=== PATIENT | female | born 1990 ===

== ENCOUNTER 2018-03-17 14:10 | Inpatient (IN) ==
[2018-03-17] MEDS ORDERED: CITRIC ACID/SODIUM CITRATE 30 ML UDCUP PO ONE (14:56)
[2018-03-17] MEDS ORDERED: LACTATED RINGERS 1,000 ML IV SCH ×2 (15:00→20:30)
[2018-03-17 16:04] LABS: Basophils % 0.1 % (0.0-0.8); Eosinophils % 0.2 % (0.00-10.9); Hematocrit 42.3 VOL% (35.7-47.0); Hemoglobin 13.8 GM/DL (12.0-16.0); Immature Granulocytes % 0.3 %; Immature Granulocytes Absolute 0.04 #; Lymphocytes # 2.4 10*3/uL (1.4-4.0); Lymphocytes % 19.6 % (21.3-54.2); Mean Corpuscular HGB Conc 32.6 GM/DL (32-36); Mean Corpuscular Hemoglobin 28 PG (27-34); Mean Corpuscular Volume 85.1 FL (87-102); Mean Platelet Volume 10.9 FL (9.6-12.0); Monocytes # 0.6 10*3/uL (0.11-0.8); Monocytes % 4.4 % (1.7-12.7); Neutrophils # 9.4 10*3/uL (1.4-7.4); Neutrophils % 75.4 % (38.7-73.9); Platelet Count 303 T/CUMM (130-400); Red Blood Count 4.97 MC/CUMM (3.8-5.5); Red Cell Distribution Width 14.5 % (9.3-17.3); White Blood Count 12.4 T/CUMM (4-12)
[2018-03-17 16:13] LABS: INR 0.9; PT Patient Result 9.3 SECS; Partial Thromboplastin Time 29.4 SECS (0-40)
[2018-03-17 16:28] LABS: Albumin 2.2 G/DL (3.4-5.0); Bilirubin,Total 0.4 MG/DL (0.2-1.0); Calcium 8.5 MG/DL (8.5-10.1); Osmolality,Calculated 277.3 MOS/KG (273-304); Potassium 3.9 MMOL/L (3.5-5.1); Total Protein 6.8 G/DL (6.4-8.3)
[2018-03-17] MEDS ORDERED: FAMOTIDINE 20 MG/2 ML VIAL IV ONE (17:00)
[2018-03-17] MEDS ORDERED: AMPICILLIN/SULBACTAM 3,000 MG in SODIUM CHLORIDE 0.9% 100 ML IV ONE (17:00)
[2018-03-17] MEDS ORDERED: OXYTOCIN 10 UNIT/ML VIAL IM ONE ×2 (17:00→17:15)
[2018-03-17] MEDS ORDERED: ceFAZolin 3,000 MG in SYRINGE 1 EACH IV ONE (17:10)
[2018-03-17] MEDS ORDERED: OXYTOCIN/LR 30 UNIT/1,000 ML BAG IV ONE (17:15)
[2018-03-17] MEDS ORDERED: LACTATED RINGERS 1,000 ML IV ONE (17:50)
[2018-03-17] MEDS ORDERED: fentaNYL 100 MCG/2 ML VIAL ONE (18:37)
[2018-03-17] MEDS ORDERED: MORPHINE 10 MG/10 ML VIAL ONE (18:38)
[2018-03-17] MEDS ORDERED: BUPIVACAINE SPINAL 0.75% 2 ML AMP SPINAL ONE (18:38)
[2018-03-17 20:14] LABS: Cord Venous Blood HCO3 24.1 MMOL/L; Cord Venous Blood PCO2 46.4 MMHG; Cord Venous Blood PO2 37.5 MMHG
[2018-03-17] MEDS ORDERED: ONDANSETRON 4 MG/2 ML VIAL IV PRN (20:18)
[2018-03-17] MEDS ORDERED: IBUPROFEN 800 MG TABLET PO PRN (20:18)
[2018-03-17] MEDS ORDERED: ACETAMINOPHEN 325 MG TABLET PO PRN (20:18)
[2018-03-17] MEDS ORDERED: RHO(D) IMMUNE GLOBULIN 300 MCG SYRINGE IM ONE (20:18)
[2018-03-17] MEDS ORDERED: OXYTOCIN/LR 20 UNIT/1,000 ML BAG IV ONE (20:18)
[2018-03-17] MEDS ORDERED: MORPHINE 10 MG/1 ML VIAL IV PRN (20:22)
[2018-03-17] MEDS ORDERED: MIDAZOLAM 2 MG/2 ML VIAL ONE (20:24)
[2018-03-17] MEDS ORDERED: PHENYLEPHRINE 1 MG/10 ML SYRINGE IV ONE (20:26)
[2018-03-17 20:28] LABS: Apearance,Urine Slightly Hazy (Clear); Bacteria,Urine Occasional /HPF (Few); Bilirubin,Urine Negative (Negative); Blood, Urine Negative (Negative); Glucose,Urine (UA) Negative (Negative); Ketones,Urine 80 mg/dL (Negative); Mucus,Urine Moderate /LPF (Occasional); Nitrite,Urine Negative (Negative); Protein,Urine 30 MG/DL; RBC,Urine 1 /HPF (0-4); Squamous Epithelial Cell,Urine Occasional /HPF (0-10); Urine Color Yellow (Yellow); Urine Specific Gravity 1.026 (1.001-1.035); Urine Urobilinogen < 2.0 EU/DL (0.2-1.0); WBC,Urine 1 /HPF (0-6)
[2018-03-17] MEDS ORDERED: KETOROLAC 30 MG/1 ML VIAL IV ONE (23:22)
[2018-03-17] MEDS ORDERED: KETOROLAC 30 MG/1 ML VIAL ONE (23:24)
[2018-03-18] MEDS: ceFAZolin 1,000 MG in SYRINGE 1 EACH IV SCH ×2 (02:21→10:05)
[2018-03-18 05:36] LABS: Basophils % 0.1 % (0.0-0.8); Hematocrit 33.1 VOL% (35.7-47.0); Immature Granulocytes % 0.2 %; Immature Granulocytes Absolute 0.03 #; Lymphocytes # 2.2 10*3/uL (1.4-4.0); Lymphocytes % 18.1 % (21.3-54.2); Mean Corpuscular HGB Conc 32.3 GM/DL (32-36); Mean Corpuscular Hemoglobin 28 PG (27-34); Mean Corpuscular Volume 86.2 FL (87-102); Mean Platelet Volume 9.8 FL (9.6-12.0); Monocytes # 0.5 10*3/uL (0.11-0.8); Monocytes % 4.4 % (1.7-12.7); Neutrophils # 9.4 10*3/uL (1.4-7.4); Neutrophils % 77.2 % (38.7-73.9); Platelet Count 250 T/CUMM (130-400); Red Cell Distribution Width 14.4 % (9.3-17.3); White Blood Count 12.2 T/CUMM (4-12)
[2018-03-18 05:38] LABS: Hemoglobin 10.7 GM/DL (12.0-16.0); Red Blood Count 3.84 MC/CUMM (3.8-5.5)
[2018-03-18] MEDS: SIMETHICONE CHEW 80 MG TABLET PO PRN (08:52)
[2018-03-18] MEDS: MAGNESIUM HYDROXIDE SUSP 30 ML UDCUP PO PRN (08:52)
[2018-03-18] MEDS: MULTIVITAMIN (PRENATAL) TABLET PO SCH (08:52)
[2018-03-18] MEDS: DOCUSATE SODIUM 100 MG CAPSULE PO SCH ×3 (08:53→21:39)
[2018-03-18] MEDS: LABETALOL 200 MG TABLET PO SCH ×2 (11:35→21:39)
[2018-03-19 07:22] VITALS: BP 132/76
[2018-03-19] MEDS: MAGNESIUM HYDROXIDE SUSP 30 ML UDCUP PO PRN (08:38)
[2018-03-19] MEDS: DOCUSATE SODIUM 100 MG CAPSULE PO SCH (08:38)
[2018-03-19] MEDS: MULTIVITAMIN (PRENATAL) TABLET PO SCH (08:38)
[2018-03-19] MEDS: LABETALOL 200 MG TABLET PO SCH (08:38)
[2018-03-19] MEDS: SIMETHICONE CHEW 80 MG TABLET PO PRN (08:39)
[2018-03-19] MEDS ORDERED: DIPH/TET/ACEL PERT BOOSTER VACCINE 0.5 ML VIAL IM ONE (10:34)
== END 2018-03-19 16:25 | disposition home or self-care (01) | DRG 765 ==
LOC: N.LDOUT 14:10 → N.LD 14:15 → N.OB 22:55
PROVIDERS: ADMIT Obstetrics & Gynecology; ATTEND Obstetrics & Gynecology
PROC: LDCSECT (ICD-10-PCS; 2018-03-17 17:00)

== ENCOUNTER 2019-04-15 09:41 | Inpatient (IN) ==
[2019-04-15] MEDS ORDERED: fentaNYL 100 MCG/2 ML VIAL ONE (10:16)
[2019-04-15] MEDS ORDERED: ONDANSETRON 4 MG/2 ML VIAL ONE (10:16)
[2019-04-15] MEDS ORDERED: BUPIVACAINE SPINAL 0.75% 2 ML AMP SPINAL ONE (10:16)
[2019-04-15] MEDS ORDERED: PHENYLEPHRINE 1 MG/10 ML SYRINGE IV ONE (10:16)
[2019-04-15] MEDS ORDERED: MORPHINE 10 MG/10 ML VIAL ONE (10:16)
[2019-04-15] MEDS ORDERED: MEPERIDINE 50 MG/1 ML VIAL IM PRN (10:19)
[2019-04-15] MEDS ORDERED: ONDANSETRON 4 MG/2 ML VIAL IV PRN ×2 (10:19→14:02)
[2019-04-15] MEDS ORDERED: LACTATED RINGERS 1,000 ML IV PRN (10:19)
[2019-04-15] MEDS ORDERED: OXYTOCIN/LR 30 UNIT/1,000 ML BAG IV ONE (10:25)
[2019-04-15] MEDS ORDERED: OXYTOCIN 10 UNIT/ML VIAL IM ONE (10:25)
[2019-04-15] MEDS ORDERED: ceFAZolin 3,000 MG in SYRINGE 1 EACH IV ONE (10:26)
[2019-04-15] MEDS ORDERED: LACTATED RINGERS 1,000 ML IV SCH ×2 (10:30→14:30)
[2019-04-15 10:44] LABS: Basophils % 0.1 % (0.0-0.8); Eosinophils % 0.2 % (0.00-10.9); Hematocrit 34.1 VOL% (35.7-47.0); Hemoglobin 10.1 GM/DL (12.0-16.0); Immature Granulocytes % 0.4 %; Immature Granulocytes Absolute 0.04 #; Lymphocytes # 2.3 10*3/uL (1.4-4.0); Lymphocytes % 22.5 % (21.3-54.2); Mean Corpuscular HGB Conc 29.6 GM/DL (32-36); Mean Corpuscular Volume 77.5 FL (87-102); Mean Platelet Volume 9.3 FL (9.6-12.0); Monocytes % 4.7 % (1.7-12.7); Neutrophils % 72.1 % (38.7-73.9); Platelet Count 336 T/CUMM (130-400); Red Cell Distribution Width 17.9 % (9.3-17.3); White Blood Count 10.1 T/CUMM (4-12)
[2019-04-15 10:56] LABS: INR 0.9; PT Patient Result 9.4 SECS
[2019-04-15 11:08] LABS: Albumin 2.2 G/DL (3.4-5.0); Bilirubin,Total 0.4 MG/DL (0.2-1.0); Calcium 8.7 MG/DL (8.5-10.1); Osmolality,Calculated 277.3 MOS/KG (273-304); Total Protein 6.7 G/DL (6.4-8.3)
[2019-04-15] MEDS ORDERED: FAMOTIDINE 20 MG/2 ML VIAL IV ONE (11:49)
[2019-04-15] MEDS ORDERED: CITRIC ACID/SODIUM CITRATE 30 ML UDCUP PO ONE (11:49)
[2019-04-15] MEDS ORDERED: SODIUM CHLORIDE 0.9% 100 ML IV ONE (12:09)
[2019-04-15 13:24] LABS: Cord Venous Blood HCO3 20.2 MMOL/L; Cord Venous Blood PCO2 64.2 MMHG
[2019-04-15 13:39] LABS: Apearance,Urine CLEAR (Clear); Bilirubin,Urine Negative (Negative); Blood, Urine Negative (Negative); Glucose,Urine (UA) Negative (Negative); Ketones,Urine 5 mg/dL (Negative); Mucus,Urine Occasional /LPF (Occasional); Nitrite,Urine Negative (Negative); Protein,Urine Negative; RBC,Urine 1 /HPF (0-4); Squamous Epithelial Cell,Urine Occasional /HPF (0-10); Urine Color Yellow (Yellow); Urine Specific Gravity 1.019 (1.001-1.035); Urine Urobilinogen < 2.0 EU/DL (0.2-1.0); WBC,Urine 1 /HPF (0-6)
[2019-04-15] MEDS ORDERED: SIMETHICONE CHEW 80 MG TABLET PO PRN (14:02)
[2019-04-15] MEDS ORDERED: OXYTOCIN/LR 20 UNIT/1,000 ML BAG IV ONE (14:02)
[2019-04-15] MEDS ORDERED: RHO(D) IMMUNE GLOBULIN 300 MCG SYRINGE IM ONE (14:02)
[2019-04-15] MEDS ORDERED: MAGNESIUM HYDROXIDE SUSP 30 ML UDCUP PO PRN (14:02)
[2019-04-15] MEDS ORDERED: ACETAMINOPHEN 325 MG TABLET PO PRN (14:02)
[2019-04-15] MEDS ORDERED: BUPIVACAINE 0.25% 50 ML VIAL ONE (14:16)
[2019-04-15] MEDS ORDERED: DEXAMETHASONE 4 MG/1 ML VIAL ONE (14:16)
[2019-04-15] MEDS ORDERED: EPINEPHrine 1 MG/ML VIAL ONE (14:16)
[2019-04-15] MEDS ORDERED: GLYCOPYRROLATE 0.4 MG/2 ML VIAL ONE (14:16)
[2019-04-15] MEDS ORDERED: ceFAZolin 1,000 MG in SYRINGE 1 EACH IV SCH (14:30)
[2019-04-15] MEDS ORDERED: diphenhydrAMINE 50 MG/1 ML VIAL IV PRN (21:04)
[2019-04-15] MEDS: DOCUSATE SODIUM 100 MG CAPSULE PO SCH (21:05)
[2019-04-15] MEDS: ceFAZolin 1,000 MG in SYRINGE 1 EACH IV SCH (21:05)
[2019-04-15 21:46] LABS: Basophils % 0.1 % (0.0-0.8); Hematocrit 34.1 VOL% (35.7-47.0); Hemoglobin 10.1 GM/DL (12.0-16.0); Immature Granulocytes % 0.5 %; Immature Granulocytes Absolute 0.07 #; Lymphocytes # 1.2 10*3/uL (1.4-4.0); Lymphocytes % 7.7 % (21.3-54.2); Mean Corpuscular HGB Conc 29.6 GM/DL (32-36); Mean Corpuscular Volume 77.9 FL (87-102); Mean Platelet Volume 9.5 FL (9.6-12.0); Monocytes % 3.4 % (1.7-12.7); Neutrophils % 88.3 % (38.7-73.9); Platelet Count 329 T/CUMM (130-400); Red Blood Count 4.38 MC/CUMM (3.8-5.5); Red Cell Distribution Width 17.9 % (9.3-17.3); White Blood Count 15.2 T/CUMM (4-12)
[2019-04-16] MEDS: ceFAZolin 1,000 MG in SYRINGE 1 EACH IV SCH (05:12)
[2019-04-16 05:26] LABS: Basophils % 0.1 % (0.0-0.8); Hematocrit 31.2 VOL% (35.7-47.0); Hemoglobin 9.5 GM/DL (12.0-16.0); Immature Granulocytes % 0.5 %; Immature Granulocytes Absolute 0.07 #; Lymphocytes # 2.2 10*3/uL (1.4-4.0); Lymphocytes % 16.2 % (21.3-54.2); Mean Corpuscular HGB Conc 30.4 GM/DL (32-36); Mean Corpuscular Volume 76.8 FL (87-102); Mean Platelet Volume 9.6 FL (9.6-12.0); Monocytes % 5.5 % (1.7-12.7); Neutrophils % 77.7 % (38.7-73.9); Platelet Count 277 T/CUMM (130-400); Red Blood Count 4.06 MC/CUMM (3.8-5.5); Red Cell Distribution Width 17.7 % (9.3-17.3); White Blood Count 13.5 T/CUMM (4-12)
[2019-04-16] MEDS: IBUPROFEN 800 MG TABLET PO PRN ×2 (05:43→12:51)
[2019-04-16] MEDS ORDERED: METOCLOPRAMIDE 10 MG TABLET PO SCH (08:00)
[2019-04-16] MEDS: MULTIVITAMIN (PRENATAL) TABLET PO SCH (08:19)
[2019-04-16] MEDS: FERROUS SULFATE 325 MG TABLET PO SCH (08:19)
[2019-04-16] MEDS: DOCUSATE SODIUM 100 MG CAPSULE PO SCH ×2 (08:19→22:13)
[2019-04-16] MEDS ORDERED: FUROSEMIDE 40 MG TABLET PO ONE ×3 (12:02→18:00)
[2019-04-16] MEDS: MAGNESIUM HYDROXIDE SUSP 30 ML UDCUP PO SCH ×2 (20:52→22:12)
[2019-04-17] MEDS: IBUPROFEN 800 MG TABLET PO PRN (04:36)
[2019-04-17] MEDS: FERROUS SULFATE 325 MG TABLET PO SCH (08:25)
[2019-04-17] MEDS: MULTIVITAMIN (PRENATAL) TABLET PO SCH (08:25)
[2019-04-17] MEDS: DOCUSATE SODIUM 100 MG CAPSULE PO SCH (08:25)
[2019-04-17 12:26] VITALS: BP 131/69
== END 2019-04-17 14:25 | disposition home or self-care (01) | DRG 540 ==
LOC: N.LDOUT 09:41 → N.LD 09:44 → N.OB 16:50
PROVIDERS: ADMIT Obstetrics & Gynecology; ATTEND Obstetrics & Gynecology
PROC: LDCSECT (ICD-10-PCS; 2019-04-15 12:00)